=== PATIENT | male | born 1985 | race Caucasian/White ===

== ENCOUNTER 2018-12-24 09:48 | Day surgery (SDC) | payer OTHER ==
[~2018-12-24] VITALS: Ht 182.9 cm; Wt 149.7 kg
[2018-12-24] MEDS ORDERED: LIDOCAINE 2% 1000 MG/50 ML VIAL INJ ONE (11:06)
[2018-12-24] MEDS ORDERED: fentaNYL 0.05 MG/ML VIAL ONE (11:48)
[2018-12-24] MEDS ORDERED: fentaNYL 0.05 MG/ML VIAL IVP ONE (11:49)
== END 2018-12-24 13:05 | disposition home or self-care (01) ==
LOC: MDS 09:48 → MMU 09:54 → MDS 13:05
PROVIDERS: ATTEND Internal Medicine Gastroenterology
DX: K70.9 Alcoholic liver disease, unspecified (principal); K75.9 Inflammatory liver disease, unspecified; E66.01 Morbid (severe) obesity due to excess calories; J45.909 Unspecified asthma, uncomplicated; Z87.891 Personal history of nicotine dependence; Z88.0 Allergy status to penicillin; Z88.1 Allergy status to other antibiotic agents; Z88.8 Allergy status to other drugs, medicaments and biological substances; Z79.899 Other long term (current) drug therapy; Z68.42 Body mass index [BMI] 45.0-49.9, adult
CPT/HCPCS: 47000; 76942; J2001; J3010; Q0092; 88307; 88313